=== PATIENT | female | born 1985 | race Caucasian/White ===

== ENCOUNTER 2016-08-27 17:00 | Outpatient (CLI) ==
[2016-08-27 17:45] LABS: FLU INTERNAL QC INTERNAL QC VALID; RAPID FLU A NEGATIVE (NEGATIVE); RAPID FLU B NEGATIVE (NEGATIVE)
== END 2016-08-27 17:01 | disposition home or self-care (01) ==
LOC: LAB 17:00
PROVIDERS: ATTEND Nurse Practitioner Family
DX: R11.2 Nausea with vomiting, unspecified (principal); Z20.828 Contact with and (suspected) exposure to other viral communicable diseases
CPT/HCPCS: 87804

== ENCOUNTER 2017-09-17 14:32 | Outpatient (CLI) | END 2017-09-17 14:33 | disposition home or self-care (01) | LOC: RHC-LAB 14:32 | PROVIDERS: ATTEND Nurse Practitioner Family | DX: F31.9 Bipolar disorder, unspecified (principal); F32.9 Major depressive disorder, single episode, unspecified; Z00.00 Encounter for general adult medical examination without abnormal findings | CPT/HCPCS: 36415; 80053; 80061; 84443; 85025 ==